=== PATIENT | female | born 1935 | race Caucasian/White ===

== ENCOUNTER 2024-03-13 14:46 | Emergency (ER) | payer MEDICARE, OTHER, SELFPAY ==
[2024-03-13 14:49] VITALS: BP 182/94
--- NOTE | 2024-03-13 15:28 | ED.GENMED ---
History of Present Illness
<Nayla Henson PA-C - Last Filed: 03/13/24 17:10>
General
Chief Complaint: Blood Pressure Problem
Source: patient
Exam Limitations: none
Time Seen by Provider: 03/13/24 15:00
Nursing documentation reviewed up to this point in time: agreed with
Travel History
Have you had any contact with someone who has COVID-19?: No
Do you have any symptoms of coronavirus? Fever > 100 degrees, chills, cough, shortness of breath, sore throat, loss of taste or smell, muscle aches, or headache?: No
History of Present Illness
History of Present Illness:
Patient is an 88-year-old female with history hypertension presenting for evaluation of high blood pressure readings at home. Patient states that a few days ago she was feeling slightly lightheaded and had a mild headache, checked her blood
pressure and was found to be in the 160s/90s. Patient continue to recheck her blood pressure for the last few days but it was staying elevated in the 160s/90s. She went to urgent care today for evaluation of persistently elevated blood pressure
where her blood pressure was found to be 190/100. At that time she mentioned to the provider that she had had a dull headache and they referred her to the emergency department for further evaluation. At this time�patient denies any chest pain,
shortness of breath, headache, visual changes, weakness, numbness, back pain. When asked about her headache yesterday she states that it was very mild, not severe and reports it is more of a ' dull bother'. Of note�patient is currently on her third
round of antibiotics for sinusitis. She has 2 days left of doxycycline.
Patient does take metoprolol 50 mg once a day. She recently switched from Norvasc to metoprolol due to lower leg swelling. She was seen by her primary care provider last week and her blood pressure was in the 140s/80s and he was happy with numbers.
Review of Systems
<Nayla Henson PA-C - Last Filed: 03/13/24 17:10>
Review of Systems
Allergies reviewed?: Yes
All Other Systems: ROS reviewed and negative except as documented in HPI and ROS
Phy Exam
<Nayla Henson PA-C - Last Filed: 03/13/24 17:10>
Physical Exam
Physical Exam:
Vitals: Hypertensive, otherwise vital signs stable
General: Patient is well appearing, no acute distress
Skin: Warm and dry, no rashes or lesions
Head: Normocephalic, atraumatic
Eyes: Sclera nonicteric. EOMs intact. No nystagmus. Pupils equal round and reactive to light bilaterally
Throat: Protecting airway
Neck: Normal ROM, no cervical spine tenderness, no meningismus
Cardiac: Regular rate and rhythm, no murmurs.
Pulm: Normal respiratory effort, no wheezes, rales, rhonchi heard on exam.
Abdomen: Soft. No abdominal tenderness.
Extremities: No evidence of cyanosis or edema
Neuro: AAOx3. CN II-XII intact. No focal neurologic deficits. Normal finger-nose. Normal [id number]. Strength 5 out of 5 in upper and lower extremities
Psychiatric: Normal affect.
Course
<Nayla Henson PA-C - Last Filed: 03/13/24 17:10>
Orders/Labs/Results
Orders:
Orders
03/13/24 15:33
Electrocardiogram (*1) Urgent
Reason for Study: Hypertension, Benign
EKG- Treatment ONCE
03/13/24 16:02
Basic Metabolic Panel Urgent
Complete Blood Count/With Diff Urgent
03/13/24 16:19
Comprehensive Metabolic Panel Urgent
Abnormal Lab Results
03/13/24 03/13/24
16:02 16:19
MCH 32.0 H pg
(27.0-31.0)
MCHC 32.9 L g/dL
(33.0-37.0)
Chloride 108 H mmol/L
(98-107)
Carbon Dioxide 21 L mmol/L
(22-30)
BUN 22 H mg/dl 22 H mg/dl
(7-17) (7-17)
Glucose 163 H mg/dl 150 H mg/dl
(70-99) (70-99)
03/13/24 16:02
03/13/24 16:19
Vital Signs
Initial and Last Documented VS:
Initial Vital Signs
Temp Pulse Resp BP Pulse Ox
97.6 F 73 18 182/94 97
03/13/24 14:49 03/13/24 14:49 03/13/24 14:49 03/13/24 14:49 03/13/24 14:49
Last Documented Vital Signs
Temp Pulse Resp BP Pulse Ox
97.6 F 58 18 158/75 94
03/13/24 14:49 03/13/24 16:52 03/13/24 16:52 03/13/24 16:52 03/13/24 16:52
Ranlt;Simeon Willett, DO - Last Filed: 03/13/24 15:44>
Orders/Labs/Results
Orders:
Orders
03/13/24 15:33
Electrocardiogram (*1) Urgent
Reason for Study: Hypertension, Benign
EKG- Treatment ONCE
03/13/24 16:02
Basic Metabolic Panel Urgent
Complete Blood Count/With Diff Urgent
03/13/24 16:19
Comprehensive Metabolic Panel Urgent
Abnormal Lab Results
03/13/24 03/13/24
16:02 16:19
MCH 32.0 H pg
(27.0-31.0)
MCHC 32.9 L g/dL
(33.0-37.0)
Chloride 108 H mmol/L
(98-107)
Carbon Dioxide 21 L mmol/L
(22-30)
BUN 22 H mg/dl 22 H mg/dl
(7-17) (7-17)
Glucose 163 H mg/dl 150 H mg/dl
(70-99) (70-99)
03/13/24 16:02
03/13/24 16:19
Vital Signs
Initial and Last Documented VS:
Initial Vital Signs
Temp Pulse Resp BP Pulse Ox
97.6 F 73 18 182/94 97
03/13/24 14:49 03/13/24 14:49 03/13/24 14:49 03/13/24 14:49 03/13/24 14:49
Last Documented Vital Signs
Temp Pulse Resp BP Pulse Ox
97.6 F 58 18 158/75 94
03/13/24 14:49 03/13/24 16:52 03/13/24 16:52 03/13/24 16:52 03/13/24 16:52
<Nayla Henson PA-C - Last Filed: 03/13/24 17:10>
MDM/Problems Addressed
Differential Diagnosis Includes:
Not limited to: Hypertensive emergency, hypertensive urgency, asymptomatic hypertension
MDM/Problems Addressed:
Patient is an 88-year-old female with history hypertension on metoprolol presenting for evaluation of high blood pressure readings at home. Systolic as high as 170s at home. Very mild headache noted yesterday, but asymptomatic at this point.
Specifically denies chest pain, shortness of breath, back pain, visual changes, headache, numbness/weakness in extremities. Blood pressure was elevated to 182/94 in triage but without any intervention decreased to 148/87. Pulse rate in low 60s.
Exam as above. She has no neurologic deficits. Heart regular rate and rhythm. Lungs clear bilaterally. Extremely low suspicion for acute intracranial abnormality�no true indication for CT at this time. Will check basic labs, EKG. Given
borderline low heart rate�advised against increasing metoprolol.
Labs noted. No clinically significant abnormalities. Blood pressure has remained stable in 150s/70s without intervention. Patient has remained asymptomatic. Given blood pressure decreased without intervention�feel patient stable for discharge.
Recommend follow-up with primary care provider for further management of hypertension and possible medication adjustments. Return precautions discussed at length. Patient comfortable with plan. All questions
Chronic conditions affecting care:
Hypertension
Acute Exacerbation and/or Progression of Chronic Illness:
Acutely hypertensive
<Nayla Henson PA-C - Last Filed: 03/13/24 17:10>
*Pulse Oximetry
Patient hypoxic: no
*EKG
Interpreted by ED Provider?: Yes
EKG Intrepretation Date: 03/13/24
Interpretation: normal
Comparison EKG: no comparison EKG present
Heart Rate: 57
Rate: bradycardiac
Rhythm: sinus
Grassflat: normal axis
Interval: normal interval
QRS Pattern: normal QRS
Ischemia: no ischemia
*Registered Medical Assistant Interpretation
Rate: normal
Interpretation: normal
Heart Rate: 60
Rhythm: sinus
*Critical Care Note
Total Time (30-74mins, 75-104mins- exclusive of procedures): Not Applicable
ED Attending Note
<Nayla Henson PA-C - Last Filed: 03/13/24 17:10>
-
Portions of this chart may have been created with voice recognition software.� Occasional wrong word or��sound alike� substitutions may have occurred due to the inherent limitations of voice recognition software.
<Simeon Willett DO - Last Filed: 03/13/24 15:44>
ED Attending Note
Patient seen and examined by attending physician: Yes
I performed the substantive portion of visit, reviewed & personally made and approve the management plan that is documented in note by myself or TAMMY.: Yes
I performed a history and physical exam of patient and discussed management with resident, I reviewed resident's note and agree with documented findings and plan of care.: Yes
ED Attending Note:
I evaluated the patient at bedside. The patient currently has no complaints as of 3:40 PM. She denies any headache currently. Her highest systolic reading at home was in the 170s. Her initial triage blood pressure was 182/94 however without
intervention was quickly down to 147 systolic. She was recently switched from Norvasc to metoprolol. I recommend against increasing the metoprolol at this time as her heart rate is around 65 and she is asymptomatic. I recommend PMD follow-up but
we will check some basic labs first.
Discharge Plan
Departure
Prescriptions:
No Action
metoprolol succinate 50 mg Tablet Extended Release 24 Hr
50 mg PO DAILY
ascorbic acid (vitamin C) [Vitamin C] 250 mg Tablet
250 mg PO QPMPRN PRN (Reason: when consuming nitrates)
doxycycline monohydrate 100 mg Capsule
100 mg PO DAILY@1500
Patient Comments:
03/13/2024, filled on 02/23/2024 and instructed to take one capsule BID for 1 week and then once capsule daily for 2 weeks; per pt., she has 2 capsules left to take.
fluticasone propionate [Flonase] 50 mcg/actuation [place],Suspension
1 spray INTRANASAL DAILY
carboxymethylcellulose sodium [Refresh] 1 % Drops, Liquid Gel
1 drp BOTH EYES QIDPRN PRN (Reason: dry eyes)
Stiolto Respimat 2.5-2.5 mcg/actuation mist
2 puff INHALATION R DAILY
Referrals:
NONE,* [Family Provider] -
Interventions
Interventions:
*General Assessment Last Done: 03/13/24 14:49
*ED COVID-19 Vaccine History Last Done: 03/13/24 14:49
ED- Cardiac Assessment Last Done: 03/13/24 16:38
ED- Neurological Assessment Last Done: 03/13/24 16:38
ED- Pulmonary Assessment Last Done: 03/13/24 16:38
Discharge Date and Time
Print Language: FAROESE
[2024-03-13 16:03] VITALS: BP 150/72
[2024-03-13 16:09] LABS: % Basophils 0.7 % (0-2); % Eosinophils 0.9 % (0-6); % Immature Granulocytes 0.3 % (0-0.5); % Lymphocytes 31.1 % (20.5-51.1); % Monocytes 6.9 % (1.7-9.3); % Neutrophils 60.1 % (42.2-75.2); Absolute Basophils 0.1 10^3/uL (0-0.2); Absolute Eosinophils 0.1 10^3/uL (0-0.7); Absolute Lymphocytes 2.1 10^3/uL (1.2-3.4); Absolute Monocytes 0.5 10^3/uL (0.1-0.6); Absolute Neutrophils 4.1 10^3/uL (1.4-6.5); Hematocrit 42.2 % (37.0-47.0); Hemoglobin 13.9 g/dL (12.0-16.0); Mean Corp Hgb Conc. 32.9 g/dL (33.0-37.0); Mean Platelet Volume 10.1 fL (7.4-10.4); Nucleated Red Blood Cells % 0 %; Platelet Count 169 10^3/uL (130-400); Red Blood Cell Count 4.35 10^6/uL (4.20-5.40); Red Cell Dist. Width 12.9 % (11.5-14.5); White Blood Cell Count 6.8 10^3/uL (4.8-10.8)
[2024-03-13 16:24] LABS: Blood Urea Nitrogen 22 mg/dl (7-17); Calcium 9.4 mg/dl (8.4-10.2); Carbon Dioxide 21 mmol/L (22-30); Chloride 107 mmol/L (98-107); Glucose 163 mg/dl (70-99); Sodium 138 mmol/L (135-145); eGFR > 60.00
[2024-03-13 16:50] LABS: ALT (SGPT) 12 U/L (0-35); AST (SGOT) 21 U/L (14-36); Albumin 3.6 g/dl (3.5-5.0); Alkaline Phosphatase 42 U/L (38-126); Blood Urea Nitrogen 22 mg/dl (7-17); Calcium 9.3 mg/dl (8.4-10.2); Carbon Dioxide 23 mmol/L (22-30); Chloride 108 mmol/L (98-107); Glucose 150 mg/dl (70-99); Potassium 4.2 mmol/L (3.5-5.1); Sodium 139 mmol/L (135-145); Total Bilirubin 0.8 mg/dl (0.2-1.3); Total Protein 6.6 g/dl (6.3-8.2); eGFR > 60.00
[2024-03-13 16:52] VITALS: BP 158/75
== END 2024-03-13 17:36 | disposition home or self-care (01) ==
LOC: EMR 14:46
PROVIDERS: Physician Assistant; EMERGENCY PHYSICIAN Emergency Medicine; FAMILY PHYSICIAN Family Medicine
DX: I10 Essential (primary) hypertension (principal)
CPT/HCPCS: 99283; 80048; 80053; 85025; 93005

== ENCOUNTER → 2024-06-04 07:05 | Outpatient (REF) | payer MEDICARE, OTHER, SELFPAY | LOC: HWRCS 07:05 | PROVIDERS: ATTENDING PHYSICIAN Internal Medicine Cardiovascular Disease; FAMILY PHYSICIAN Family Medicine | DX: R06.02 Shortness of breath (principal) | CPT/HCPCS: 93306 ==

== ENCOUNTER → 2025-01-15 12:54 | Outpatient (REF) | payer MEDICARE, OTHER, SELFPAY | LOC: HWLAB 12:54 | PROVIDERS: ATTENDING PHYSICIAN Ophthalmology; FAMILY PHYSICIAN Family Medicine | DX: H53.2 Diplopia (principal) | CPT/HCPCS: 36415; 86366 ==

== ENCOUNTER → 2025-03-21 13:09 | Outpatient (REF) | payer MEDICARE, OTHER, SELFPAY | LOC: RAD 13:09 | PROVIDERS: ATTENDING PHYSICIAN Nurse Practitioner; FAMILY PHYSICIAN Family Medicine; OTHER PHYSICIAN Internal Medicine Cardiovascular Disease | DX: R06.02 Shortness of breath (principal); R60.0 Localized edema | CPT/HCPCS: 93970 ==